=== PATIENT | female | born 1955 | race African-American/Black ===

== ENCOUNTER 2016-11-27 17:41 | Emergency (ER) | payer OTHER, MEDICARE ==
[~2016-11-27 17:41] MED LIST: HYDROCODONE/ACE1 TA1 PO
--- NOTE | 2016-11-27 18:24 | ED CARDIAC/CP/PALPITATIONS ---
History of Present Illness General Chief Complaint: General Adult Stated Complaint: "PULLED MUSCLE"? IN CHEST Source: patient, old records Exam Limitations: no limitations Vital Signs & Intake/Output Vital Signs & Intake/Output Vital Signs Date Time Temp Pulse Resp B/P Pulse O2 O2 Flow FiO2 Ox Delivery Rate 11/28 0002 97.8 82 18 174/90 96 Room Air 11/28 0001 97.4 11/27 2144 81 16 185/91 96 Room Air 11/27 2105 97.4 90 19 186/82 95 Room Air 11/27 1935 97 Room Air 11/27 1758 97.2 94 18 195/87 96 Allergies Coded Allergies: NO KNOWN ALLERGIES (07/27/16) Reconcile Medications Allopurinol 100 MG TABLET 1 TAB PO DAILY GOUT (Reported) Amlodipine Besylate 5 MG TABLET 1 TAB PO DAILY BP (Reported) Ascorbate Calcium (Vitamin C) (Unknown Strength) TABLET (Unknown Dose) PO DAILY SUPPLEMENT (Reported) Aspirin (Ecotrin*) 81 MG TABLET.DR 1 TAB PO DAILY HEART/BLOOD (Reported) Cholecalciferol (Vitamin D3) (Vitamin D) (Unknown Strength) TABLET (Unknown Dose) PO DAILY SUPPLEMENT (Reported) Clopidogrel Bisulfate (Clopidogrel) 75 MG TABLET 1 TAB PO DAILY BLOOD THINNER (Reported) Cyanocobalamin (Vitamin B-12) (Unknown Strength) TABLET (Unknown Dose) PO DAILY SUPPLEMENT (Reported) Dulaglutide (Trulicity) 1.5 MG/0.5 ML PEN.INJCTR 1.5 MG SC QTUES DM (Reported ) Esomeprazole (Nexium) 40 MG CAPSULE.DR 1 CAP PO DAILY GI (Reported) Ferrous Sulfate (IRON) (Unknown Strength) TABLET (Unknown Dose) PO DAILY SUPPLEMENT (Reported) Losartan Potassium 100 MG TABLET 1 TAB PO DAILY BP (Reported) Metformin HCl (Metformin HCl ER) 500 MG TAB.ER.24H 1 TAB PO BID DM (Reported) Metoprolol Succinate 50 MG TAB.ER.24H 1 TAB PO DAILY HEART/BP (Reported) Triage Note: 61 YEAR OLD FEMALE C/O LEFT SIDED RIB PAIN. PT STATES SHE THOUGHT IT WAS MUSCULAR BUT HAD A STENT PLACED IN SEPTEMBER SO SHE THOUGHT SHE SHOULD HAVE IT CHECKED. PT STATES SOMETIMES SHE JUST FEELS TIRED. SABINA CABRERA TO BEDSIDE FOR EVAL. Triage Nurses Notes Reviewed? yes Onset: Abrupt Duration: gone now, intermittent Timing: multiple episodes today Quality/Severity: moderate, sharp, stabbing Activities at Onset: activity Modifying Factors: Improves With: lying down. Worsens With: movement. 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 Patient currently is on clopidogrel who presents emergency room stating that for the past 2 days patient has noted intermittent left anterior chest wall pain that is made worse with deep inhalation palpation and upper extremity movements and body movements. Patient has not taken any medications for symptoms. Patient states at rest she has no pain. Denies any fever, chills, back pain arm pain jaw pain nausea vomiting palpitations diaphoresis leg swelling hemoptysis. Patient does taken prophylactic aspirin 81 mg a day (CRISTY KIMBALL) Past History Travel History Traveled to [place] past 21 day No Medical History Any Pertinent Medical History? 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 No (CRISTY KIMBALL) Review of Systems Review of Systems Constitutional: Reports: no symptoms. EENTM: Reports: no symptoms. Respiratory: Reports: see HPI. Denies: cough, short of breath. Cardiovascular: Reports: see HPI, chest pain. Denies: edema, palpitations. GI: Reports: no symptoms. Genitourinary: Reports: no symptoms. Musculoskeletal: Reports: no symptoms. Skin: Reports: no symptoms. Neurological/Psychological: Reports: no symptoms. Hematologic/Endocrine: Reports: no symptoms. Immunologic/Allergic: Reports: no symptoms. All Other Systems: Reviewed and Negative (CRISTY KIMBALL) Physical Exam Physical Exam General Appearance: no apparent distress, obese Respiratory: normal breath sounds, no respiratory distress, LEFT ANTERIOR CHEST WALL POINT TENDERNESS NOTED Cardiovascular: regular rate/rhythm Comments: HEENT: Normal EENT exam, Neck: Supple, no lymphadenopathy, normal range of motion without pain or tenderness Back: Nontender, no CVA tenderness. Abdomen: Soft, nontender nondistended, no appreciable organomegaly. Normal bowel sounds. No ascites Extremity: No edema, no calf tenderness to palpation, normal and equal pulses. Neuro: Alert oriented x3, motor sensory normal, Skin: No appreciable rash on exposed skin, skin is warm and dry. Psych: Mood and affect is normal, memory and judgment is normal. Core Measures ACS in differential dx? Yes Severe Sepsis Present: No Septic Shock Present: No (HORACIO MUHAMMAD,CRISTY) Progress Differential Diagnosis: AMI, aortic dissection, atrial fibrillation, cholecystitis, CHF/pulm edema, costochondritis, hyperkalemia, hypovolemia, hyperthyroid, hyperventilation, intracranial hemorrhage, musculoskeletal pain, myocarditis, pancreatitis, pericarditis, pneumonia, pneumothorax, PSVT, pulmonary embolism, PUD/GERD, PVCs/PACs, respiratory failure, rib fracture, sepsis, unstable angina, V-fib/V-Tach, WPW syndrome Plan of Care: Orders Procedure Date/time Status TROPONIN LEVEL 11/27 2300 Complete EKG 11/27 230 Active Telemetry/Drilling Engineer 11/27 1824 Active THYROID STIMULATING HORMONE 11/27 1824 Complete TROPONIN LEVEL 11/27 182 Complete FREE T4 11/27 182 Complete D-DIMER 11/27 182 Complete COMPREHENSIVE METABOLIC PANEL 11/27 182 Complete CBC WITHOUT DIFFERENTIAL 11/27 1824 Complete EKG 11/27 1743 Active Laboratory Tests 11/27/16 2316: Troponin I < 0.01 11/27/16 1900: Anion Gap 13, Estimated GFR 46 L, BUN/Creatinine Ratio 13.3, Glucose 122 H, Calcium 9.7, Total Bilirubin 0.3, AST 22, ALT 36, Alkaline Phosphatase 79, Troponin I < 0.01, Total Protein 6.7, Albumin 3.9, Globulin 2.8, Albumin/ Globulin Ratio 1.4, TSH 2.840, Free T4 0.92, D-Dimer < 200, CBC w Diff NO MAN DIFF REQ, RBC 6.25 H, MCV 65.2 L, MCH 20.6 L, RDW 17.8 H, MPV 9.7, Gran % 57.7, Lymphocytes % 27.2, Monocytes % 11.8 H, Eosinophils % 2.4, Basophils % 0.9, Absolute Granulocytes 3.9, Absolute Lymphocytes 1.8, Absolute Monocytes 0.8 H, Absolute Eosinophils 0.2, Absolute Basophils 0.1, PUBS MCHC 31.6 L Patient currently is in no apparent distress and has reproducible pain upon deep inhalations upper extremity movements and chest palpation. Patient had unremarkable EKG and troponin. It was discussed by me by radiologist concerns of a right hilar OPACITY which I discussed with patient the results and give a copy of the x-ray to follow up outpatient. I discussed patient with Dr. Arzola who advised patient to receive second set of cardiac enzyme in which patient was accepting this plan. helix coil winder noted patient to be normal sinus rhythm Patient had unremarkable second EKG and cardiac enzymes. Patient has been in the emergency room entire time having no exacerbation of symptoms and has reproducible pain upon chest wall movements at this time I spent patient have chest wall pain Patient was strongly advised to follow-up with chest x-ray findings that she was given a copy of the results (HORACIO MUHAMMAD,CRISTY) Diagnostic Imaging: Viewed by Me: Radiology Read. CXR Impression: SEE COMMENTS Initial ED EKG: sinus rhythm noted 91 bpm Multiple artifact noted Prior EKG: unchanged Repeat EKG: unchanged Comments: PATIENT: MANDY DAMON PRESENT AGE: 61 PATIENT ACCOUNT NO: [id number] : 55 LOCATION: [facility] ORDERING PHYSICIAN: CRISTY MUHAMMAD SERVICE DATE: 11/27/16 EXAM TYPE: RAD - XRY-CHEST XRAY, PA AND LATERAL EXAMINATION: XR CHEST CLINICAL INFORMATION: Left chest pain COMPARISON: Prior chest radiograph 10/30/2012 and 09/01/2013. TECHNIQUE: 2 views of the chest were obtained. FINDINGS: Cardiac and mediastinal silhouettes are normal in appearance. A new nodular density is seen lateral to the right hilum, not visualized previously. The lungs and pleural spaces are otherwise clear. No evidence of pulmonary edema. No focal osseous abnormalities. IMPRESSION: No cause for acute left-sided chest pain is seen. No evidence of left-sided pneumonia or pulmonary edema. Focal nodular tissue prominence is identified lateral to the right hilum, not visualized previously. Recommend enhanced CT thorax for further evaluation to exclude underlying pulmonary lesion. The findings were reviewed with Cristy Cabrera. (CRISTY KIMBALL) Departure Departure Disposition: HOME OR SELF CARE Condition: Stable Clinical Impression Primary Impression: Chest wall pain Referrals: LISA RODRIGES APRN (PCP/Family) Additional Instructions: As discussed continue home medications as directed. Begin [id number] ibuprofen if needed for pain and inflammation. Follow-up tomorrow with YOUR engine wiper. If symptoms worsen return to the emergency room Please provide your primary care doctor the copy of the x-ray to have a repeat image of your chest for follow-up Departure Forms: Customer Survey General Discharge Information (CRISTY KIMBALL) PA/NURSE COLLEGE Co-Sign Statement Statement: ED Attending supervision documentation- X] I saw and evaluated the patient. I have also reviewed all the pertinent lab results and diagnostic results. I agree with the findings and the plan of care as documented in the PA's/NURSE COLLEGE's documentation. [X] I have reviewed the ED Record and agree with the PA's/NURSE COLLEGE's documentation. [] Additions or exceptions (if any) to the PAs/NURSE COLLEGE's note and plan are summarized below: [] (GOOD KHAN,MARCELLO De Oliveira) Critical Care Note Critical Care Note Critical Care Time: non-applicable (CRISTY KIMBALL)
--- NOTE | 2016-11-27 19:00 | RADIOLOGY REPORT ---
EXAMINATION: XR CHEST CLINICAL INFORMATION: Left chest pain COMPARISON: Prior chest radiograph 10/30/2012 and 09/01/2013. TECHNIQUE: 2 views of the chest were obtained. FINDINGS: Cardiac and mediastinal silhouettes are normal in appearance. A new nodular density is seen lateral to the right hilum, not visualized previously. The lungs and pleural spaces are otherwise clear. No evidence of pulmonary edema. No focal osseous abnormalities. IMPRESSION: No cause for acute left-sided chest pain is seen. No evidence of left-sided pneumonia or pulmonary edema. Focal nodular tissue prominence is identified lateral to the right hilum, not visualized previously. Recommend enhanced CT thorax for further evaluation to exclude underlying pulmonary lesion. The findings were reviewed with Kostas Cabrera.
[2016-11-27 19:07] LABS: ABSOLUTE BASOPHIL COUNT 0.1 /CUMM (0.0-0.2); ABSOLUTE EOSINOPHIL COUNT 0.2 /CUMM (0.0-0.7); ABSOLUTE GRANULOCYTE CT 3.9 /CUMM (1.4-6.5); ABSOLUTE LYMPH COUNT 1.8 /CUMM (1.2-3.4); ABSOLUTE MONOCYTE COUNT 0.8 /CUMM (0.10-0.60); BASOPHIL % 0.9 % (0.0-2.0); EOSINOPHIL % 2.4 % (0-5); GRANULOCYTE % 57.7 % (42.2-75.2); HEMATOCRIT 40.7 % (37-47); MEAN CORPUSCULAR HGB 20.6 PG (27.0-31.0); MEAN CORPUSCULAR HGB CONC 31.6 G/DL (33.0-37.0); MEAN CORPUSCULAR VOLUME 65.2 FL (81.0-99.0); MEAN PLATELET VOLUME 9.7 FL (7.4-10.4); PLATELET COUNT 270 /CUMM (130-400); RBC DISTRIBUTION WIDTH 17.8 % (11.5-14.5); RED BLOOD CELL CT 6.25 /CUMM (4.20-5.40); WHITE BLOOD CELL COUNT 6.7 /CUMM (4.8-10.8)
[2016-11-27] MEDS ORDERED: METOPROLOL SUCC50 M2 PO (20:23)
[2016-11-27] MEDS ORDERED: NEXIUM40 M1 PO (20:23)
[2016-11-27] MEDS ORDERED: LOSARTAN POTAS100 M1 PO (20:24)
[2016-11-27] MEDS ORDERED: AMLODIPINE BESYL5 M1 PO (20:24)
[2016-11-27] MEDS ORDERED: TRULICITY1.5 MG/0.5 SC (20:25)
[2016-11-27] MEDS ORDERED: METFORMIN HCL500 M4 PO (20:25)
[2016-11-27] MEDS ORDERED: CLOPIDOGREL75 M1 PO (20:25)
[2016-11-27] MEDS ORDERED: ASPIRIN EC81 M1 PO (20:26)
[2016-11-27] MEDS ORDERED: ALLOPURINOL100 M1 PO (20:26)
[2016-11-27] MEDS ORDERED: VITAMIN B-121000 MC3 PO (20:26)
[2016-11-27] MEDS ORDERED: VITAMIN D2000 UNI1 PO (20:26)
[2016-11-27] MEDS ORDERED: IRON325 M3 PO (20:27)
[2016-11-27] MEDS ORDERED: VITAMIN C500 M6 PO (20:27)
[2016-11-28 00:02] VITALS: BP 174/90
== END 2016-11-28 00:02 ==
LOC: ERH 17:41
PROVIDERS: Physician Assistant
DX: R07.89 Other chest pain (principal); E11.9 Type 2 diabetes mellitus without complications; Z79.84 Long term (current) use of oral hypoglycemic drugs
CPT/HCPCS: 93005; 93010

== ENCOUNTER 2017-11-12 15:10 | Emergency (ER) | payer OTHER, MEDICARE ==
[~2017-11-12 15:10] MED LIST changes: +ALLOPURINOL100 M1 PO; +AMLODIPINE BESYL5 M1 PO; +ASPIRIN EC81 M1 PO; +CLOPIDOGREL75 M1 PO; +IBUPROFEN600 M1 PO; +IRON325 M3 PO; +LOSARTAN POTAS100 M1 PO; +METFORMIN HCL500 M4 PO; +METOPROLOL SUCC50 M2 PO; +NEXIUM40 M1 PO; +PROAIR HFA8.5 GM INH; +TRULICITY1.5 MG/0.5 SC; +ULTRAM50 M1 PO; +VITAMIN B-121000 MC3 PO; +VITAMIN C500 M6 PO; +VITAMIN D2000 UNI1 PO; +ZOFRAN ODT4 M1 SL
[2017-11-12 15:43] VITALS: BP 169/103
[2017-11-12 17:46] LABS: ABSOLUTE BASOPHIL COUNT 0 /CUMM (0.0-0.2); ABSOLUTE EOSINOPHIL COUNT 0.1 /CUMM (0.0-0.7); ABSOLUTE GRANULOCYTE CT 5.1 /CUMM (1.4-6.5); ABSOLUTE LYMPH COUNT 1.3 /CUMM (1.2-3.4); ABSOLUTE MONOCYTE COUNT 0.6 /CUMM (0.10-0.60); BASOPHIL % 0 % (0.0-2.0); EOSINOPHIL % 1.7 % (0-5); GRANULOCYTE % 72.1 % (42.2-75.2); MEAN CORPUSCULAR HGB 20.1 PG (27.0-31.0); MEAN CORPUSCULAR HGB CONC 31.4 G/DL (33.0-37.0); MEAN CORPUSCULAR VOLUME 64.2 FL (81.0-99.0); MEAN PLATELET VOLUME 8.4 FL (7.4-10.4); PLATELET COUNT 283 /CUMM (130-400); RBC DISTRIBUTION WIDTH 17.7 % (11.5-14.5); RED BLOOD CELL CT 6.23 /CUMM (4.20-5.40); WHITE BLOOD CELL COUNT 7.1 /CUMM (4.8-10.8)
== END 2017-11-12 18:53 | disposition admitted as inpatient to this hospital (09) ==
LOC: ERH 15:10
PROVIDERS: Physician Assistant Medical
DX: R06.02 Shortness of breath (principal)
CPT/HCPCS: 99281

== ENCOUNTER → 2017-11-29 | Day surgery (SDC) | payer OTHER, MEDICARE ==
[~2017-11-29] VITALS: Ht 157.5 cm; Wt 141.5 kg
[~2017-11-29] MED LIST changes: +SLOW RELEASE I142 MG PO; +VITAMIN B125000 MC1 PO
--- NOTE | 2017-11-29 13:20 | Operative Report ---
Operative/Inv Procedure Report Surgery Date: 11/29/17 Name of Procedure: Fluoro guided insertion of tunneled prtacath via R subclavian vein Pre-Operative Diagnosis: lung cancer Post-Operative Diagnosis: same Estimated Blood Loss: scant Surgeon/Gas Golf Cart Repairer: Burke KHAN,Keith Bowles Anesthesia: local monitored anesthesi Operative/Procedure Note Note: With the patient supine on the OR table, right arm tucked, head not turned, after induction of MAC sedation, the patient's right subclavian area, including the shoulder neck and contralateral chest, were prepped and draped in the usual sterile fashion. BMI 56, had to use tape. After injecting local anesthetic in the right infraclavicular area, skin, subcutaneous to the clavicle, and inferiorly where the pocket will be, the patient was repositioned to Trendelenburg. Putting your right index finger on the sternal notch and thumb pressing down lateral to the curve of the clavicle, I made a puncture through the skin with the 15 blade scalpel next to thumb. Then along that line towards the tip of your finger, advance a large-bore needle, bevel towards the feet, on a slip tip 10 mL syringe barrel flat against the deltoid, advancing to bone and then "walking" it down just under the clavicle keeping the needle flat as possible, while maintaining vacuum with the plunger, accessing the subclavian venous blood, then replacing the syringe with a wire, sliding in with minimum resistance, confirming the position with the C-arm fluoroscope, making sure the wire is traveling down along the cava towards the right side of the heart and not up or across, and no ectopy. Next I secured the wire to the drape, measured (approximately 23 cm), cut and attached the catheter to the port. Approximately 3-4 cm inferior to the stick site a 2-1/2 cm long skin incision was made with a 15 blade scalpel along Langers lines. It was deepened with cautery and a space was developed inferiorly under the subcutaneous layer. The Port-A-Cath was laid in there and secured in [address] with 2-0 Prolene through the holes in the port, the sutures were kept loose on snaps at this point. Next the catheter was tunneled up subcutaneously with a snap and brought out through the stick site next to the wire. Then the dilator only, was passed over the wire until you could feel it slide under the clavicle, then removed, then re-advanced this time with the peel-away sheath over it, while advancing simultaneously pull the dilator out and advance the sheath, eventually pulling out the dilator and wire completely. Then the catheter was put into the sheath as far as it'll go then while holding that knuckle down with DeBakey's, gently peel-away the sheath with your field administrative assistant. Now the correct position of the catheter was confirmed with the fluoroscope, using a Torres needle and heparinized saline solution, the catheter was first aspirated then flushed with approximately 3 mL's, with minimal resistance. The patient was repositioned to neutral, after tying down the 2 Prolenes, the larger incision was closed in layers, 3-0 Vicryl deep and 4-0 subcuticular Monocryl for the skin, and one subcuticular Monocryl for the stick site. Both areas were covered with Mastisol Steri-Strips Telfa and Tegaderm. Chest x-ray was ordered to be done in the recovery room. Lap and sponge counts were correct. Wound expectancy was clean, IV fluids crystalloid, complications none, patient tolerated the procedure well was awakened and returned to the recovery room in satisfactory condition.
--- NOTE | 2017-11-29 13:58 | RADIOLOGY REPORT ---
EXAMINATION: XR PORTABLE CHEST CLINICAL INFORMATION: In PACU. Status post Port-A-Cath. COMPARISON: Chest CTA 11/15/2017. TECHNIQUE: Portable frontal view of the chest was obtained. FINDINGS: There has been interval placement of a right chest wall port with catheter seen extending to the SVC but distal tip not visualized. There is subsegmental atelectasis bilaterally. There is no evidence of pneumothorax or dense consolidation. IMPRESSION: Interval placement of a right chest wall port which extends to the SVC but distal tip is not well visualized. No evidence of pneumothorax.
--- NOTE | 2017-11-30 09:41 | RADIOLOGY REPORT ---
EXAMINATION: CR ABDOMEN/INTRAOPERATIVE FLUOROSCOPY CLINICAL INDICATION: Port-A-Cath insertion. COMPARISON: Chest x-ray dated 10/08/2017. TECHNIQUE/FINDINGS: Fluoroscopic equipment was dedicated to the operating room for the performance of an intraoperative procedure. Several (2) spot films were acquired and are archived in PACS. Please refer to operative notes for procedural detail. FLUOROSCOPY TIME: 0.10 minutes. IMPRESSION: Administrative dictation for intraoperative fluoroscopy and image archiving in PACS. Please refer to operative notes for details.
== END ==
LOC: STS 02:43
DX: C34.91 Malignant neoplasm of unspecified part of right bronchus or lung (principal); G47.33 Obstructive sleep apnea (adult) (pediatric); Z87.891 Personal history of nicotine dependence; I25.10 Atherosclerotic heart disease of native coronary artery without angina pectoris; Z79.01 Long term (current) use of anticoagulants; E11.9 Type 2 diabetes mellitus without complications; Z79.84 Long term (current) use of oral hypoglycemic drugs; I10 Essential (primary) hypertension
CPT/HCPCS: 71045; 93005; 93010; C1751; J0690; J1644; J2250

== ENCOUNTER 2018-06-14 18:38 | Inpatient (IN) | payer OTHER, MEDICARE ==
[~2018-06-14] VITALS: Ht 157.5 cm; Wt 142.0 kg
[2018-06-14 20:16] LABS: ABSOLUTE BASOPHIL COUNT 0 /CUMM (0.0-0.2); ABSOLUTE EOSINOPHIL COUNT 0.5 /CUMM (0.0-0.7); ABSOLUTE GRANULOCYTE CT 3.7 /CUMM (1.4-6.5); ABSOLUTE LYMPH COUNT 0.9 /CUMM (1.2-3.4); BASOPHIL % 0.2 % (0.0-2.0); GRANULOCYTE % 60.2 % (42.2-75.2); HEMATOCRIT 36.7 % (37-47); MEAN CORPUSCULAR HGB 20.5 PG (27.0-31.0); MEAN CORPUSCULAR HGB CONC 31.3 G/DL (33.0-37.0); MEAN PLATELET VOLUME 9.9 FL (7.4-10.4); PLATELET COUNT 412 /CUMM (130-400); RBC DISTRIBUTION WIDTH 19.9 % (11.5-14.5)
--- NOTE | 2018-06-14 20:38 | ED GENERAL ADULT ---
History of Present Illness General Chief Complaint: Dyspnea (COPD, CHF, Other) Stated Complaint: DIFF BREATHING, CP, H/O LUNG CA Source: patient Exam Limitations: no limitations Vital Signs & Intake/Output Vital Signs & Intake/Output Vital Signs Date Time Temp Pulse Resp B/P B/P Pulse O2 O2 Flow FiO2 Mean Ox Delivery Rate 06/15 0100 98.5 91 20 166/85 98 Room Air 06/14 2232 170/85 06/14 2228 98.6 95 22 196/85 100 Room Air 06/14 2022 92 20 180/90 96 Room Air 06/14 1903 96.5 06/14 1858 100 18 226/99 96 Room Air ED Intake and Output 06/15 0000 06/14 1200 Intake Total 0 Output Total Balance 0 Intake, Oral 0 Patient 310 lb Weight Weight Reported by Patient Measurement Method Allergies Coded Allergies: NO KNOWN ALLERGIES (NONE 11/11/17) Reconcile Medications Albuterol Sulfate (Proair Hfa) 90 MCG HFA.AER.AD 2 PUF INH AD PRN RESP. ( Reported) Allopurinol 100 MG TABLET 1 TAB PO DAILY GOUT (Reported) Amlodipine Besylate 5 MG TABLET 1 TAB PO DAILY BP (Reported) Ascorbate Calcium (Vitamin C) 500 MG TABLET 2 TAB PO DAILY SUPPLEMENT ( Reported) Aspirin (Ecotrin*) 81 MG TABLET.DR 1 TAB PO DAILY HEART/BLOOD (Reported) Cholecalciferol (Vitamin D3) (Vitamin D) 2,000 UNIT TABLET 1 TAB PO DAILY SUPPLEMENT (Reported) Clopidogrel Bisulfate (Clopidogrel) 75 MG TABLET 1 TAB PO DAILY BLOOD THINNER (Reported) Cyanocobalamin (Vitamin B-12) (Vitamin B12) 5,000 MCG TAB.RAPDIS 1 TAB PO DAILY SUPPLEMENT (Reported) Dulaglutide (Trulicity) 1.5 MG/0.5 ML PEN.INJCTR 1.5 MG SC QTUES DM (Reported ) Esomeprazole (Nexium) 40 MG CAPSULE.DR 1 CAP PO DAILY GI (Reported) Ferrous Sulfate (Slow Release Iron) 142 MG (45 MG IRON) TABLET.ER 1 TAB PO DAILY SUPPLEMENT (Reported) Losartan Potassium 100 MG TABLET 1 TAB PO DAILY BP (Reported) Metformin HCl (Metformin HCl ER) 500 MG TAB.ER.24H 1 TAB PO BID DM (Reported) Metoprolol Succinate 50 MG TAB.ER.24H 3 TAB PO DAILY HEART/BP (Reported) Triage Note: PT TO ED FOR PAIN UNDER L BREAST ACCOMPANIED BY EXERTIONAL SOB. HX OF LUNG CA - CURRENTLY BEING TREATED, UNSURE OF LAST TREATMENT "THEY ARE CHANGING THE TREATMENT" PT AWAKE/ALERT. PAIN STARTED "A COUPLE DAYS AGO" WHILE PT WAS SITTING ON COUCH WATCHING TV. PT REPORTS SHE HAS BEEN MASSAGING UNDER BREAST WITH NO IMPROVEMENT. Triage Nurses Notes Reviewed? yes Onset: Gradual Duration: day(s): Timing: recent history Severity: moderate Severity Numbers: 6 No Modifying Factors: none HPI: 62-year-old female patient presents the ED complaining of left-sided chest pain in shortness of breath 3 days patient states the pain is located just under her left breast and has been radiating to her left side into the center of her chest intermittently. She recently has grown more frustrated with her shortness of breath which is worse with ambulation which is why she presents to the ED tonight. She has a history of lung and liver cancer which has been treated with chemo and radiation this past year. Other medical history includes diabetes and a cardiac stent. She denies history of asthma or COPD but states she borrows her friend's nebulizer treatment occasionally when she is short of breath. (Edvin Herrera) Past History Travel History Traveled to [place] past 21 day No Medical History Any Pertinent Medical History? 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 Yes (Edvin Herrera) Review of Systems Review of Systems Constitutional: Reports: weakness. Denies: chills, diaphoresis, fever. EENTM: Denies: blurred vision, double vision, visual changes, eye pain. Respiratory: Reports: short of breath. Denies: cough, sputum production, stridor, wheezing. Cardiovascular: Reports: chest pain. Denies: orthopena, palpitations, syncope. GI: Denies: abdominal pain, bloating, constipation, diarrhea. Genitourinary: Denies: discharge, dysuria, frequency, hematuria. Musculoskeletal: Denies: back pain, muscle pain, muscle stiffness, neck pain. All Other Systems: Reviewed and Negative (Edvin Herrera) Physical Exam Physical Exam General Appearance: well developed/nourished, no apparent distress, alert, awake , mild distress, obese Head: atraumatic, normal appearance Eyes: Bilateral: normal appearance, PERRL, EOMI. Ears, Nose, Throat: normal pharynx, normal ENT inspection, hearing grossly normal Neck: normal inspection, supple, full range of motion Respiratory: chest non-tender, no respiratory distress, quiet respiration, decreased breath sounds, plerual rub Cardiovascular: regular rate/rhythm, normal peripheral pulses Gastrointestinal: normal bowel sounds, soft, non-tender Back: normal inspection, normal range of motion Core Measures ACS in differential dx? Yes CVA/TIA Diagnosis: No Sepsis Present: No Sepsis Focused Exam Completed? Yes (Edvin Herrera) Progress Differential Diagnoses I considered the following diagnoses in my evaluation of the patient: [ACS, ARDS , COPD exacerbation, GERD, costochondritis,] 62-year-old female patient presents the ED complaining of left-sided chest pain in shortness of breath 3 days patient states the pain is located just under her left breast and has been radiating to her left side into the center of her chest intermittently. She recently has grown more frustrated with her shortness of breath which is worse with ambulation which is why she presents to the ED tonight. She has a history of lung and liver cancer which has been treated with chemo and radiation this past year. Other medical history includes diabetes and a cardiac stent. CXRAY r/o acute process. CTA to r/o PE considering PMHx and tachycardia. Plan of Care: Orders Procedure Date/time Status Consistent Carbohydrate 3 06/15 B Active CBC WITHOUT DIFFERENTIAL 06/15 06 Active BASIC ELECTROLYTES PLUS BUN&CR 06/15 06 Active STREP PNEUMO URINARY ANTIGEN 06/15 0023 Active LEGIONELLA URINARY ANTIGEN 06/15 0023 Active Lab Add-on Test 06/15 0020 Active Pathway - chart 06/15 0015 Active House Staff 06/15 0015 Active Patient Data 06/15 15 Active LOWER RESPIRATORY CULTURE 06/15 15 Active Code Status 06/15 001 Active VTE Mechanical Prophylaxis 06/15 UNK Active FingerStick- Glucose 06/15 UNK Active BLOOD CULTURE 06/14 2345 Active OXYGEN SETUP (GEN) 09/22 2304 Active Saline Lock 06/14 2304 Active Admit to inpatient 06/14 2304 Active Vital Signs 06/14 2304 Active Activity/Ambulation 06/14 2304 Active Code Status 06/14 2304 Complete LACTIC ACID 06/14 2006 Complete TROPONIN LEVEL 06/14 2005 Complete D-DIMER 06/14 2005 Complete COMPREHENSIVE METABOLIC PANEL 06/14 2005 Complete CBC WITHOUT DIFFERENTIAL 06/14 2005 Complete Intake & Output 06/14 1900 Active EKG 06/14 1839 Active Current Medications Sig/He Start time Last Medication Dose Stop Time Status Admin Azithromycin 500 MG 0000 06/16 0000 UNVr (Zithromax) Sodium Chloride 250 ML (Normal Saline 0.9%) Ceftriaxone Sodium 1,000 MG 0000 06/16 0000 UNVr (Rocephin) Atorvastatin Calcium 40 MG 1700 06/15 1700 UNVr (Lipitor) Amlodipine Besylate 5 MG DAILY 06/15 09 AC (Norvasc) Aspirin Buffered 81 MG DAILY 06/15 900 AC (Ecotrin) Cholecalciferol 2,000 IU DAILY 06/15 09 AC (Vitamin D) Clopidogrel Bisulfate 75 MG DAILY 06/15 09 AC (Plavix) Enoxaparin Sodium 40 MG DAILY 06/15 09 AC (Lovenox) Metoprolol Succinate 150 MG DAILY 06/15 09 AC (Toprol Xl) Insulin Aspart 0 TIDAC 06/15 08 AC (NovoLOG) Omeprazole 40 MG DAILY AC 06/15 07 AC (Prilosec) Albuterol Sulfate 2 PUF BID 06/15 0129 UNVr (Ventolin) Acetaminophen 650 MG Q6P PRN 06/15 0015 AC (Tylenol) Docusate Sodium 100 MG DAILY NEEDED PRN 06/15 001 AC (Colace) Morphine Sulfate 2 MG Q6P PRN 06/15 0015 AC (MORPHINE SULFATE) Oxycodone HCl 5 MG Q6 PRN 06/15 0015 AC (Roxicodone) Laboratory Tests 06/14/182005: Anion Gap 8, Estimated GFR 56 L, BUN/Creatinine Ratio 14.0, Glucose 116 H, Lactic Acid 2.0, Calcium 9.2, Total Bilirubin 0.4, AST 37 H, ALT 41, Alkaline Phosphatase 93, Troponin I 0.01, Total Protein 6.3, Albumin 3.5, Globulin 2.8, Albumin/Globulin Ratio 1.3, D-Dimer High Sensitivty 717 H, CBC w Diff NO MAN DIFF REQ, RBC 5.60 H, MCV 65.6 L, MCH 20.5 L, MCHC 31.3 L, RDW 19.9 H, MPV 9.9, Gran % 60.2, Lymphocytes % 15.1 L, Monocytes % 16.5 H, Eosinophils % 8.0 H, Basophils % 0.2, Absolute Granulocytes 3.7, Absolute Lymphocytes 0.9 L, Absolute Monocytes 1.0 H, Absolute Eosinophils 0.5, Absolute Basophils 0 Microbiology 06/15 23 URINE ROUT: Legionella Antigen - ORD 06/15 23 URINE ROUT: Streptococcus pneumoniae Antigen (M - ORD 06/15 15 LOWER RESP: Respiratory Culture - ORD 06/15 15 LOWER RESP: Gram Stain - ORD 06/15 15 BLOOD: Blood Culture - CAN Cancelled: Cancelled via OE: Duplicate Order 06/15 15 BLOOD: Blood Culture - CAN Cancelled: Cancelled via OE: Duplicate Order 06/15 BLOOD: Blood Culture - ORD 06/15 BLOOD: Blood Culture - ORD 62-year-old female patient presents the ED complaining of left-sided chest pain in shortness of breath 3 days patient states the pain is located just under her left breast and has been radiating to her left side into the center of her chest intermittently. She recently has grown more frustrated with her shortness of breath which is worse with ambulation which is why she presents to the ED tonight. She has a history of lung and liver cancer which has been treated with chemo and radiation this past year. Other medical history includes diabetes and a cardiac stent. CTA rules out pulmonary embolism. However the patient will be admitted for signs of pneumonia. Hospitalist contacted and is aware of patient's history of long cancer with metastases to liver. Blood cultures were ordered as well as IV Zithromax/ceftriaxone. Initial ED EKG: Sinus Tachycardia, Non specific T-Wave changes in the Lateral Leads (Edvin Herrera) Departure Departure Disposition: STILL A PATIENT Condition: Stable Clinical Impression Primary Impression: PNA (pneumonia) Referrals: Elly Avelar APRN (PCP/Family) Departure Forms: Customer Survey General Discharge Information Admission Note Spoke With: Jon Bhat MD Documentation of Exam: Documentation of any treatments & extenuating circumstances including Concerns Regarding Discharge (functional status, medication knowledge or non-compliance, living conditions, etc.) that warrant an admission rather than observation: [ CTA:IMPRESSION: NO Evidence of PE. No evidence of aortic dissection or aneurysm. Right upper lobe and right lower lobe superior segment pneumonic infiltrate with right posterior pleural thickening. There are reactionary lymph nodes or soft tissue density in the right parahilar region and subcarinal region. 2 liver lesions as described above likely metastatic. The right hepatic lobe lesion adjacent to the diaphragm has been seen on previous PET study 04/01/2018. VTE: Negative. Patient admitted on the terms of meeting SIRS criteria with evidence of pneumonia. She has an involved past medical history including diagnosed lung cancer which has metastasized to her liver with an acute infiltrate requiring admission as opposed to observation. These findings were discussed and agreed with by Dr. Bhat as well as Dr. Frances who were in agreement.] (Edvin Herrera) PA/[employer] Co-Sign Statement Statement: ED Attending supervision documentation- x I saw and evaluated the patient. I have also reviewed all the pertinent lab results and diagnostic results. I agree with the findings and the plan of care as documented in the PA's/[employer]'s documentation. JOHN, SOB, hx lung ca with pneumonia on CTA [] I have reviewed the ED Record and agree with the PA's/[employer]'s documentation. [] Additions or exceptions (if any) to the PAs/[employer]'s note and plan are summarized below: [] (Yvrose KHAN,Van) Critical Care Note Critical Care Note Critical Care Time: non-applicable (Edvin Herrera) ED Attending Observation Initial Observation Note: I have seen and personally examined MANDY DAMON on 06/14/18 at 2221. I agree with the current emergency department documentation. The disposition (admission or discharge) is uncertain at this time, she needs a period of observation for the following reason(s): The ED Nurse caring for this patient has been personally informed as to what the patient is being observed for. (Edvin Herrera)
[2018-06-14 20:48] LABS: MEAN CORPUSCULAR VOLUME 65.6 FL (81.0-99.0); WHITE BLOOD CELL COUNT 6.1 /CUMM (4.8-10.8)
--- NOTE | 2018-06-14 21:09 | RADIOLOGY REPORT ---
EXAMINATION: XR CHEST CLINICAL INFORMATION: Pneumonia, shortness of breath, lung cancer. COMPARISON: 11/29/2017 chest x-ray and 04/01/[address] scan. TECHNIQUE: 2 views of the chest were obtained. FINDINGS: The cardiac size and mediastinal silhouette are unremarkable. There are opacities in the right medial lung, obscuring the right mediastinal border, which could correlate with the airspace disease seen on the 04/01/[address] scan. The opacities could represent post treatment changes, however superimposed pneumonia is not excluded. Clinical correlation is suggested. The right lower lobe pulmonary mass is seen on the lateral view. There is tenting of the right hemidiaphragm which can be due to partial right lower lobe collapse. There is a right subclavian Port-A-Cath in place with its tip in the region of the right atrium. Elongated opacity in the left lower lung can represent plate-like atelectasis. The visualized bones demonstrate kyphotic and degenerative changes of the mid thoracic spine. IMPRESSION: Pulmonary opacities in the medial right lung with obscuration of the right mediastinal border could represent post treatment changes, although possibility of superimposed pneumonia is not excluded. Clinical correlation is advised.
--- NOTE | 2018-06-14 22:57 | CT SCAN REPORT ---
EXAMINATION: CT ANGIOGRAM OF THE CHEST WITH AND WITHOUT CONTRAST (CT PULMONARY ANGIOGRAM FOR PE) CLINICAL INFORMATION: Reason for Study:
Presumptive Dx: R/O PE
Signs Symptoms: CP and SOB
COMPARISON: None TECHNIQUE: Prior to contrast administration, noncontrast localization images were obtained. Subsequently, multidetector volumetric imaging was performed from the thoracic inlet to below the diaphragms following the administration of 80 mL Omnipaque 350 intravenous contrast. No contrast reaction reported. Sagittal, coronal, and MIP oblique sagittal reformatted images were obtained on the CT workstation, uploaded to PACS, and reviewed. Total exam dose-length product 838 mGy-cm. FINDINGS: QUALITY OF STUDY/CONTRAST BOLUS: Satisfactory PULMONARY ARTERIES: No central or segmental pulmonary emboli. THORACIC AORTA: No aneurysm or dissection. LUNG: Ends of well-expanded with the right lower lobe superior segment and right upper lobe consolidation with air bronchogram. Left lung is expanded and clear. PLEURA: There is minimal right posterior pleural thickening MEDIASTINUM: Heart size is normal. No pericardial effusion seen. The airways widely patent. There is soft tissue density in the right hilar region question reactive lymph nodes. Similarly there is soft tissue density subcarinal region suspicious for reactive lymph nodes as well. Small lymph nodes are seen left para-aortic region. No evidence of septal bowing or right heart strain. CHEST WALL/AXILLA: No axillary or internal mammary lymphadenopathy. OSSEOUS STRUCTURES: There is moderate bridging osteophytes and spondylosis mid and lower dorsal spine. UPPER ABDOMEN: There is diffuse attenuation of right hepatic lobe is small hypodense lesions along the right hepatic dome measuring 3 cm and a second lesion segment 7 right hepatic lobe on axial image 50, series 4. No reflux of contrast into the hepatic veins to suggest elevated right heart pressures. IMPRESSION: Evidence of PE. No evidence of aortic dissection or aneurysm. Right upper lobe and right lower lobe superior segment pneumonic infiltrate with right posterior pleural thickening. There are reactionary lymph nodes or soft tissue density in the right parahilar region and subcarinal region. 2 liver lesions as described above likely metastatic. The right hepatic lobe lesion adjacent to the diaphragm has been seen on previous PET study 04/01/2018. VTE: Negative.
--- NOTE | 2018-06-15 00:12 | History & Physical ---
Ron Ellis 06/15/18 0011: General Information and HPI MD Statement: I have seen and personally examined MANDY DAMON and documented this H&P. The patient is a 62 year old F who presented with a patient stated chief complaint of [shortness of breath]. Source of Information: patient, family Exam Limitations: poor historian History of Present Illness: 62-year-old morbidly obese female with history of lung adenocarcinoma with metastases to liver status post chemotherapy and radiation, hypertension, diabetes mellitus, coronary artery disease status post stenting, and asthma presents with worsening dyspnea on exertion and pain on the left side of her chest. The patient last received her chemotherapy 2 weeks ago, and for the last 2 days the patient has experienced increased shortness of breath on walking more than 30 feet. She has been using her inhaler at home, but this has not helped with her symptoms. At the same time, but occurring separately from exertion and/ or the dyspnea, the patient has experienced left-sided chest pain underneath her left breast. She reports that she has also had a recent cold with cough productive of whitish sputum that began just prior to the onset of the shortness of breath, after she took "a whole bottle of cough medicine" that did not help. One of her daughters has also been sick at home, but they are unsure as to who became sick first. She also reports chills and peripheral edema but denies fever. She also denies abdominal pain, constipation, diarrhea, dysuria, or urinary frequency/urgency. She is a former smoker, quitting tobacco as well as ETOH 20 years ago. Allergies/Medications Allergies: Coded Allergies: NO KNOWN ALLERGIES (NONE 11/11/17) Home Med list Albuterol Sulfate (Proair Hfa) 90 MCG HFA.AER.AD 2 PUF INH AD PRN RESP. ( Reported) Allopurinol 100 MG TABLET 1 TAB PO DAILY GOUT (Reported) Amlodipine Besylate 5 MG TABLET 1 TAB PO DAILY BP (Reported) Ascorbate Calcium (Vitamin C) 500 MG TABLET 2 TAB PO DAILY SUPPLEMENT ( Reported) Aspirin (Ecotrin*) 81 MG TABLET.DR 1 TAB PO DAILY HEART/BLOOD (Reported) Cholecalciferol (Vitamin D3) (Vitamin D) 2,000 UNIT TABLET 1 TAB PO DAILY SUPPLEMENT (Reported) Clopidogrel Bisulfate (Clopidogrel) 75 MG TABLET 1 TAB PO DAILY BLOOD THINNER (Reported) Cyanocobalamin (Vitamin B-12) (Vitamin B12) 5,000 MCG TAB.RAPDIS 1 TAB PO DAILY SUPPLEMENT (Reported) Dulaglutide (Trulicity) 1.5 MG/0.5 ML PEN.INJCTR 1.5 MG SC QTUES DM (Reported ) Esomeprazole (Nexium) 40 MG CAPSULE.DR 1 CAP PO DAILY GI (Reported) Ferrous Sulfate (Slow Release Iron) 142 MG (45 MG IRON) TABLET.ER 1 TAB PO DAILY SUPPLEMENT (Reported) Losartan Potassium 100 MG TABLET 1 TAB PO DAILY BP (Reported) Metformin HCl (Metformin HCl ER) 500 MG TAB.ER.24H 1 TAB PO BID DM (Reported) Metoprolol Succinate 50 MG TAB.ER.24H 3 TAB PO DAILY HEART/BP (Reported) Past History Travel History Traveled to [place] past 21 day No Medical History Neurological: NONE EENT: NONE Cardiovascular: angina, hypertension, hyperlipidemia, HEART DISEASE Respiratory: NONE Gastrointestinal: GERD Hepatic: NONE Renal: NONE Musculoskeletal: gout Psychiatric: NONE Endocrine: diabetes Cancer(s): NON SMALL CELL CANCER 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 Denies: diaphoresis, fever. Cardiovascular: Reports: chest pain, edema, peripheral edema. Denies: orthopena, palpitations. Respiratory: Reports: cough, short of breath, sputum production, wheezing. GI: Denies: abdominal pain, constipation, diarrhea, nausea, vomiting. Exam & Diagnostic Data Last 24 Hrs of Vital Signs/I&O Vital Signs Date Time Temp Pulse Resp B/P B/P Pulse O2 O2 Flow FiO2 Mean Ox Delivery Rate 06/15 0210 106 172/94 06/15 0149 97.9 20 97 Room Air 06/15 0147 172/94 06/15 0147 106 208/117 06/15 0100 98.5 91 20 166/85 98 Room Air 06/14 2232 170/85 06/14 2228 98.6 95 22 196/85 100 Room Air 06/14 2022 92 20 180/90 96 Room Air 06/14 1903 96.5 06/14 1858 100 18 226/99 96 Room Air Intake & Output 06/15 0800 06/15 0000 06/14 1600 Intake Total 0 Output Total Balance 0 Intake, Oral 0 Patient 140.614 kg Weight Weight Reported by Patient Measurement Method Physical Exam General Appearance Alert, Oriented X3, Cooperative, No Acute Distress HEENT Atraumatic, PERRLA, EOMI Cardiovascular Regular Rate, Normal S1, Normal S2 Lungs Clear to Auscultation, Normal Air Movement Abdomen Normal Bowel Sounds, Soft, No Tenderness Neurological Normal Speech, Strength at 5/5 X4 Ext, Normal Tone, Sensation Intact Extremities No Clubbing, No Cyanosis, 2+ pitting edema BLE's Last 24 Hrs of Labs/Klaus: Laboratory Tests 06/14/182005: Anion Gap 8, Estimated GFR 56 L, BUN/Creatinine Ratio 14.0, Glucose 116 H, Lactic Acid 2.0, Calcium 9.2, Total Bilirubin 0.4, AST 37 H, ALT 41, Alkaline Phosphatase 93, Troponin I 0.01, Total Protein 6.3, Albumin 3.5, Globulin 2.8, Albumin/Globulin Ratio 1.3, D-Dimer High Sensitivty 717 H, CBC w Diff NO MAN DIFF REQ, RBC 5.60 H, MCV 65.6 L, MCH 20.5 L, MCHC 31.3 L, RDW 19.9 H, MPV 9.9, Gran % 60.2, Lymphocytes % 15.1 L, Monocytes % 16.5 H, Eosinophils % 8.0 H, Basophils % 0.2, Absolute Granulocytes 3.7, Absolute Lymphocytes 0.9 L, Absolute Monocytes 1.0 H, Absolute Eosinophils 0.5, Absolute Basophils 0 Microbiology 06/15 152 URINE ROUT: Legionella Antigen - COMP 06/15 152 URINE ROUT: Streptococcus pneumoniae Antigen (M - COMP 06/15 15 LOWER RESP: Respiratory Culture - ORD 06/15 15 LOWER RESP: Gram Stain - ORD 06/15 15 BLOOD: Blood Culture - CAN Cancelled: Cancelled via OE: Duplicate Order 06/15 15 BLOOD: Blood Culture - CAN Cancelled: Cancelled via OE: Duplicate Order 06/15 BLOOD: Blood Culture - ORD 06/15 BLOOD: Blood Culture - ORD Assessment/Plan Assessment: 62 year old obese female with history of lung adenocarcinoma with metastatic liver lesions, coronary artery disease status post stenting presenting with 2 days of dyspnea on exertion. CTA found right upper lobe and right lower lobe superior segment pneumonic infiltrate with right posterior pleural thickening, suggestive of possible pneumonia. VTE negative, but D-dimer elevated at 717. Problems: 1. Right upper & lower lobe PNA 2. Microcytic anemia 3. Hypertension 4. Diabetes mellitus 5. History of lung adenocarcinoma, with metastases to the liver and lymph nodes 6. Morbid obesity Plan: Full code As Ranked By This Provider Problem List: 1. Chest wall pain 2. PNA (pneumonia) Core Measures/Misc (06/09) Acute Coronary Syndrome ACS Diagnosis: No Congestive Heart Failure Congestive Heart Failure Diagnosis No Cerebrovascular Accident CVA/TIA Diagnosis: No VTE (View Protocol) VTE Risk Factors Cancer/chemo/othr therapy No Mechanical VTE Prophylaxis d/t N/A MechProphylax Ordered No VTE Pharm Prophylaxis d/t NA PharmProphylax ordered Sepsis (View protocol) Sepsis Present: No If YES complete Sepsis Event Note If YES complete Sepsis Event Note Jon Bhat 06/15/18 0013: Core Measures/Misc (06/09) Sepsis (View protocol) If YES complete Sepsis Event Note If YES complete Sepsis Event Note Attending MD Review Statement Attending Statement Attending MD Statement: examined this patient, discuss w/resident/PA/LAMINATION MACHINE OPERATOR, agreed w/resident/PA/LAMINATION MACHINE OPERATOR, discussed with family, reviewed images, amended to note Attending Assessment/Plan: Addendum by . Patient was seen and examined at bedside today ( 06/14/18 ) at 11:45 pm. Reviewed the history physical done by the resident. Reviewed the past medical family, family, social history. ROS: 10 point system reviewed and negative except as described above. Additional details: Patient is 62 years old female who is morbidly obese has adenocarcinoma of the lung with metastasis to the lymph nodes, liver diagnosed earlier this year who is undergoing chemotherapy, status post radiotherapy, history of diabetes type 2, coronary disease status post stenting, asthma, hypertension, gout he is here for evaluation of shortness of breath going on for 2 days. Patient says that she noticed shortness of breath associated with cough and sputum for 2 days. She thought symptoms would get better on its own but did not get any improvement so she visited the emergency room. In the ER she had a normal vitals. She underwent a CT chest to rule out any PE which was negative. But found to have right upper lobe pneumonia. Exam: Obese, alert, oriented 3. Lungs-clear no crackles or wheezing heard. Normal cardiac exam. Chest x-ray, CT chest with contrast, labs, biopsy reports, prior imaging studies are reviewed. Assessment and plan: #Right upper lobe pneumonia involving the anterior segment. Patient is stable breathing de. Get sputum cultures, blood cultures, start on azithromycin plus ceftriaxone. The patient feels better can discharge her home on oral antibiotics. #Adenocarcinoma of the lung with metastasis to the lymph nodes and liver. Status post chemotherapy and radiotherapy. CT chest ruled out PE, which is still showing 2 lesions in the liver, persistent right lung mass. Though her last PET scan shows resolved right hilar and right mediastinal lymph nodes. Patient follows with the hematology group here in [place] and she received last chemotherapy 2 weeks ago. #Morbid obesity-weight loss was advised. #Hypertension-continue the home medications. #Coronary disease status post coronary stent this year. Continue with aspirin and Plavix, beta-blockers, statin. #Diabetes type 2 patient is on Trulicity and metformin at home. Continue with a sliding scale and metformin for now and resume her home medications on discharge. #Asthma stable-continue with the albuterol inhaler. #History of gout-continue with allopurinol. #Vitamin D deficiency continue with the supplements. Reviewed with the resident. Agree with the rest of the plan as per resident's note. Dr.Ravinder Kay MD. Hospitalist. Pager: [phone], cell: [phone]. Josseline KHAN,[facility] 06/15/18 0018: Core Measures/Misc (06/09) Sepsis (View protocol) If YES complete Sepsis Event Note If YES complete Sepsis Event Note Resident Review Statement Resident Statement: examined this patient, discussed with internal security manager, reviewed EMR data (avail) Other Findings: 62 yo F with PMH of hypertension, hyperlipidemia, diabetes, invasive lung adenocarcionma with metastases to liver s/p radiation and chemotherapy, CAD s/p stent, asthma presented to the ED with complains of worsening shortness of breath and cough. The patient states that for the past few days, she has had a persistent cough with white productive sputum along with shortness of breath worse with exertion. She initially used a cough medication but it didn't help her much. Due to persistent symptoms she visited the ER today. She also complains of soreness below her left breast. She denies any sick contacts at home. Denies fevers but endorses chills. Denies any abdominal pain, nausea, dysuria, constipation or diarrhea. She received her first dose of chemotherapy [address] ago[address] with [address] Ferrer. ROS: as per HPI Physical Exam: General Appearance: well developed/obese, no apparent distress, Head: atraumatic, normal appearance Ears, Nose, Throat: normal hearing and speech. No sinus tenderness Respiratory: normal breath sounds, chest non-tender, no respiratory distress Cardiovascular: regular rate/rhythm, normal S1 and S2, no M/R/G Gastrointestinal: soft, distended, non-tender Extremities: pitting edema of feet Neurologic/Psych: awake, alert, oriented x 3, normal mood/affect Skin: intact, normal color, warm/dry A chest CTA showed right upper lobe and right lower lobe superior segment pneumonic infiltrate with right posterior pleural thickening. Reactionary lymph nodes or soft tissue density in the right parahilar region and subcarinal region. Two metastatic liver lesions Assessment: 1. Right upper and lower lobe Pneumonia 2. Microcytic Anemia 3. History of diabetes 4. History of Hypertension 5. History of Lung adenocarcinoma with metastases to liver and hilar lymph nodes 6. Morbid Obesity Plan: * Admit patient to general medicine floor. * Start IV Ceftriaxone 1g and IV Azithromycin 500mg daily. * Obtain blood and sputum cultures. * Obtain urine legionella and strep pneumo antigen. * Continue aspirin, plavix, statin and metoprolol. * Hold oral hypoglycemics * Insulin SS with Accuchecks. * Diet: diabetic * DVT Prophylaxis: SC Lovenox * Code: Full Code * Please obtain the patient's medication list from the pharmacy or from Dr Arzola's office on Saturday.
[2018-06-15 01:47] VITALS: BP 172/94; BP 208/117
--- NOTE | 2018-06-15 04:17 | Event Note ---
Event Note Event Note: S-Called to the patient's room by nursing because the patient was complaining of R arm pain after receiving an IV dose of Azithromycin. The IV Azithromycin was paused. B-The patient has a history of lung cancer and was admitted by me for dyspnea on exertion, presumed pneumonia. She has one venous access and blood cultures were unable to be drawn in the ED because the patient was deemed a "hard stick". She is being given IV Azithromycin and Ceftriaxone to cover suspected pneumonia. A-The patient reports that she began noticing a "stinging pain" in her right arm , over an area about the size of a quarter ~10cm proximal to the IV site in her Right antecubital fossa, not extending along proximally, that improved after the IV Azithromycin was stopped. The patient denied any burning sensation or itching. She likewise denied light-headedness. The patient was unsure whether she has ever had Azithromycin before, but denied any known drug allergies. On exam the patient's right arm was non-erythematous and did not appear swollen when compared to the left arm. The IV site itself was clean, without bleeding, bruising, swelling or evidence of infiltration. The right arm was completely non -tender to palpation, including where the patient indicated her pain was, the arm was slightly warm to the touch, but not significantly warmer than the left arm. Strength was intact, 5/5 in the bilateral upper extremities. Sensation and radial pulses were also intact. R-It is possible that the patient was having a reaction to Azithromycin, and to be cautious I held the IV Azithromycin for now, although most of the dose had already been given (approximately 3/4 of the bag). It more likely that this patient's IV could be infiltrated, and I recommend that tomorrow the Ceftriaxone be given first to see if she has a similar stinging sensation (since she received Ceftriaxone without incident in the ED). If there is no stinging, it would be adviseable to discontinue the Azithromycin and switch to a different antibiotic. Finally, there is the unlikely possibility of a DVT of the right upper extremity, given the patient's history of cancer, but this is made less likely by the lack of tenderness or swelling in the patient's right arm. Irregardless, in light of an elevated D-dimer of 717, venous duplex ultrasound of the RUE should be considered.
[2018-06-15 04:29] VITALS: BP 145/95
[2018-06-15 06:48] VITALS: BP 145/95
--- NOTE | 2018-06-15 10:15 | Event Note ---
Event Note Event Note: Assessment: 62 year old obese female with history of lung adenocarcinoma with metastatic liver lesions, coronary artery disease status post stenting presenting with 2 days of dyspnea on exertion. CTA found right upper lobe and right lower lobe superior segment pneumonic infiltrate with right posterior pleural thickening, suggestive of possible pneumonia. VTE negative, but D-dimer elevated at 717. Problems: 1. Right upper & lower lobe PNA 2. Microcytic anemia 3. Hypertension 4. Diabetes mellitus 5. History of lung adenocarcinoma, with metastases to the liver and lymph nodes 6. Morbid obesity Subjective- Patient was seen and examined this morning. She is doing well, denies any fever/ chest pain/ fatigue/ cough/ racing of heart/ abdominal pain/ nausea and vomitting. Her medication list was confirm,ed with pharmacy and [facility]. Patient is apparently prescribed lasix, which she last refilled on 04/29 and hasnt been compliant. Her BP today has been high and she has CP. -f/u EKG- no acute changes from previous EKG -Troponin- f/u -WIll get an echo -RUE doppler- IMPRESSION: No thrombus identified within the veins of the right upper extremity. If clinical symptoms persist, consider repeat evaluation in 5-7 days. Cardiology consult appreciated -Continue cardiac regimen of aspirin, Plavix, metoprolol and statin therapy. Continue amlodipine for blood pressure control. -She may continue on empiric antibiotic therapy for now pending evaluation by lead solutions architect for possible cardiac etiology of her symptoms. -Continue sliding-scale insulin coverage.
--- NOTE | 2018-06-15 10:52 | PN- Att Addend ---
Attending Addendum Attending Brief Note Patient seen and examined. System comfortably eating breakfast. Not in any acute distress. Denies chest pain now. Denies shortness of breath at rest.. Denies palpitations. She admits to chronic shortness of breath. It is noted that patient presented with complaints of left-sided chest pain. She was found afebrile with no leukocytosis. Imaging shows right-sided pulmonary infiltrate. Post radiation therapy changes should be considered as differential for this infiltrate. Vital Signs Date Time Temp Pulse Resp B/P B/P Pulse O2 O2 Flow FiO2 Mean Ox Delivery Rate 06/15 0940 132/80 06/15 0800 96 Room Air 06/15 0648 98.2 98 20 145/95 96 Room Air 06/15 0429 98.2 98 20 145/95 96 Room Air 06/15 0240 96 Room Air 06/15 0210 106 172/94 06/15 0149 97.9 20 97 Room Air 06/15 0147 172/94 06/15 0147 106 208/117 06/15 0100 98.5 91 20 166/85 98 Room Air 06/14 2232 170/85 06/14 2228 98.6 95 22 196/85 100 Room Air 06/14 2022 92 20 180/90 96 Room Air 06/14 1903 96.5 06/14 1858 100 18 226/99 96 Room Air General appearance: Not in acute distress Heart: S1-S2 regular with no audible murmur Lungs: Adequate entry bilaterally with no added sounds Abdomen: Obese, soft, nontender with normal bowel sounds Extremities: No pedal edema. No evidence of IV infiltration in the right upper extremity. Skin: Intact with no rashes. Assessment. Patient is a 62-year-old female with medical history significant for coronary artery disease status post need for stent placement in the past. It is noted that earlier this year she had a nuclear stress test which she could not complete as she became symptomatic and had a drop in her blood pressure. The nuclear portion of the stress test showed evidence of a perfusion abnormality involving the inferior wall this abnormality was noted to be more severe than noted in a previous stress test. However the radiologist did suggest that findings could be due to attenuation by the adjacent diaphragm. She now presents with left-sided chest pain and worsening shortness of breath. Only evidence suggestive of pneumonia is an infiltrate on the right side which is at the site of previous biopsy and radiation therapy for lung cancer. Problems: 1. Chest pain 2. Worsening chronic shortness of breath 3. History of coronary artery disease status post stent placement in the past. 4. Right-sided lung cancer status post biopsy, radiation therapy currently on chemotherapy. With metastasis to the liver. 5. [id number] diabetes mellitus 6. Hypertension Plan: -In view of her history of coronary artery disease I believe a chest pain needs to be evaluated in more detail. Second troponin should be drawn and the cardiology service contacted regarding need for further ischemic workup. Obtain further information from her university counselor during the week. Obtain echocardiogram to evaluate for wall motion abnormalities. Check BNP level although she shows normal evidence of volume overload on physical examination or radiologic exam evaluation. -Continue cardiac regimen of aspirin, Plavix, metoprolol and statin therapy. Continue amlodipine for blood pressure control. -She may continue on empiric antibiotic therapy for now pending evaluation by university counselor for possible cardiac etiology of her symptoms. -Continue sliding-scale insulin coverage.
[2018-06-15 14:19] VITALS: BP 176/94
--- NOTE | 2018-06-15 14:28 | ULTRASOUND REPORT ---
EXAMINATION: US TRIPLEX LOWER EXTREMITY, EXAMINATION: DUPLEX VENOUS ULTRASOUND OF THE right UPPER EXTREMITY. CLINICAL HISTORY: Stinging sensation of right upper extremity COMPARISON: None. TECHNIQUE: Long-scale, color and Doppler ultrasound of the deep veins of the right upper extremity were performed. FINDINGS: The right internal jugular, subclavian and axillary veins demonstrate normal color Doppler flow suggesting patency. The right brachial and basilic veins are easily compressible and demonstrate normal color Doppler flow suggesting patency. The right cephalic vein is easily compressible suggesting patency. IMPRESSION: No thrombus identified within the veins of the right upper extremity. If clinical symptoms persist, consider repeat evaluation in 5-7 days.
[2018-06-15 15:58] LABS: HEMATOCRIT 37.5 % (37-47); MEAN CORPUSCULAR HGB 20.5 PG (27.0-31.0); MEAN CORPUSCULAR HGB CONC 31.6 G/DL (33.0-37.0); MEAN CORPUSCULAR VOLUME 64.8 FL (81.0-99.0); MEAN PLATELET VOLUME 9.8 FL (7.4-10.4); PLATELET COUNT 406 /CUMM (130-400); RBC DISTRIBUTION WIDTH 19.6 % (11.5-14.5); RED BLOOD CELL CT 5.78 /CUMM (4.20-5.40); WHITE BLOOD CELL COUNT 8.5 /CUMM (4.8-10.8)
--- NOTE | 2018-06-15 16:42 | Cons- Cardiology ---
General Information and HPI Consulting Request Date of Consult: 06/15/18 Requested By: Jon Bhat MD Reason for Consult: Chest pain History of Present Illness: The patient is a 62-year-old female with history of lung adenocarcinoma with metastases to the liver status post chemotherapy and radiation, hypertension, diabetes mellitus, and CAD status post stenting who presented with complaint of shortness of breath and chest discomfort. The patient most recently had chemotherapy 2 weeks ago. For the past 2 days the patient has noted shortness of breath which is increased with activity such as walking 30 feet. She has been using her inhaler at home without improvement. She also notes dull left- sided chest discomfort which is a 7 out of 10 in severity. The chest discomfort lasts for a few minutes per episode and occurs multiple times per day. She had a recent cough productive of whitish sputum. Allergies/Medications Allergies: Coded Allergies: NO KNOWN ALLERGIES (NONE 11/11/17) Home Med List: Albuterol Sulfate (Proair Hfa) 90 MCG HFA.AER.AD 2 PUF INH AD PRN RESP. ( Reported) Allopurinol 100 MG TABLET 1 TAB PO DAILY GOUT (Reported) Amlodipine Besylate 5 MG TABLET 1 TAB PO DAILY BP (Reported) Ascorbate Calcium (Vitamin C) 500 MG TABLET 2 TAB PO DAILY SUPPLEMENT ( Reported) Aspirin (Ecotrin*) 81 MG TABLET.DR 1 TAB PO DAILY HEART/BLOOD (Reported) Cholecalciferol (Vitamin D3) (Vitamin D) 2,000 UNIT TABLET 1 TAB PO DAILY SUPPLEMENT (Reported) Clopidogrel Bisulfate (Clopidogrel) 75 MG TABLET 1 TAB PO DAILY BLOOD THINNER (Reported) Cyanocobalamin (Vitamin B-12) (Vitamin B12) 5,000 MCG TAB.RAPDIS 1 TAB PO DAILY SUPPLEMENT (Reported) Dulaglutide (Trulicity) 1.5 MG/0.5 ML PEN.INJCTR 1.5 MG SC QTUES DM (Reported ) Esomeprazole (Nexium) 40 MG CAPSULE.DR 1 CAP PO DAILY GI (Reported) Ferrous Sulfate (Slow Release Iron) 142 MG (45 MG IRON) TABLET.ER 1 TAB PO DAILY SUPPLEMENT (Reported) Losartan Potassium 100 MG TABLET 1 TAB PO DAILY BP (Reported) Metformin HCl (Metformin HCl ER) 500 MG TAB.ER.24H 1 TAB PO BID DM (Reported) Metoprolol Succinate 50 MG TAB.ER.24H 3 TAB PO DAILY HEART/BP (Reported) Current Medications: Current Medications Sig/He Start time Last Medication Dose Route Stop Time Status Admin Acetaminophen 650 MG Q6P PRN 06/15 0015 AC PO Albuterol Sulfate 3 ML Q4P PRN 06/15 1330 AC INH Albuterol Sulfate 2 PUF BIDPRN PRN 06/15 1322 AC INH Albuterol Sulfate 2 PUF BID 06/15 0129 DC INH Amlodipine Besylate 5 MG DAILY 06/15 09 AC 06/15 PO 0940 Amlodipine Besylate 2.5 MG ONCE ONE 06/15 0200 DC 06/15 PO 06/15 0201 0210 Aspirin Buffered 81 MG DAILY 06/15 09 AC 06/15 PO 0940 Atorvastatin Calcium 40 MG 1700 06/15 1700 AC 06/15 PO 1700 Azithromycin 500 MG 0000 06/16 0000 AC Sodium Chloride 250 ML IV Azithromycin 500 MG ONCE ONE 06/14 2345 DC 06/15 Sodium Chloride 250 ML IV 06/15 0044 0112 Ceftriaxone Sodium 1,000 MG 0000 06/16 0000 AC IV Ceftriaxone Sodium 0 .STK-MED ONE 06/15 0107 DC .ROUTE Ceftriaxone Sodium 1,000 MG ONCE ONE 06/15 0015 DC IV 06/15 0016 Ceftriaxone Sodium 1,000 MG ONCE ONE 06/14 2345 DC 06/15 IV 06/14 2346 0111 Cholecalciferol 2,000 IU DAILY 06/15 09 AC 06/15 PO 0941 Clopidogrel Bisulfate 75 MG DAILY 06/15 09 AC 06/15 PO 0941 Docusate Sodium 100 MG DAILY NEEDED PRN 06/15 0015 AC PO Enoxaparin Sodium 40 MG DAILY 06/15 09 AC 06/15 SC 0941 Furosemide 20 MG ONCE ONE 06/15 1730 DC 06/15 PO 06/15 1731 1825 Insulin Aspart 0 TIDAC 06/15 08 AC 06/15 SC 1700 Metoprolol Succinate 150 MG DAILY 06/15 09 AC 06/15 PO 0941 Morphine Sulfate 2 MG Q6P PRN 06/15 0015 AC IV Omeprazole 40 MG DAILY AC 06/15 0700 AC 06/15 PO 0624 Oxycodone HCl 5 MG Q6 PRN 06/15 0015 AC PO Review of Systems Review of Systems: No rash. No tremor. No fever. No chills. All other systems were reviewed, and were noted to be negative. 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 reviewed/non-contributory Psychosocial History Where Do You Live? Home Services at Home: None Smoking Status: Former Smoker Exam & Diagnostic Data Vital Signs and I&O Vital Signs Date Time Temp Pulse Resp B/P B/P Pulse O2 O2 Flow FiO2 Mean Ox Delivery Rate 06/15 1600 Room Air 06/15 1419 97.5 92 18 176/94 94 Room Air 06/15 1306 Room Air 06/15 0940 132/80 06/15 0800 96 Room Air 06/15 0648 98.2 98 20 145/95 96 Room Air 06/15 0429 98.2 98 20 145/95 96 Room Air 06/15 0240 96 Room Air 06/15 0210 106 172/94 06/15 0149 97.9 20 97 Room Air 06/15 0147 172/94 06/15 0147 106 208/117 06/15 0100 98.5 91 20 166/85 98 Room Air 06/14 2232 170/85 06/14 2228 98.6 95 22 196/85 100 Room Air Intake & Output 06/15 1600 06/15 0800 06/15 0000 06/14 1600 06/14 0800 06/14 0000 Intake Total 910 490 0 Output Total 300 Balance 910 190 0 Intake, IV 10 250 Intake, Oral 900 240 0 Number 0 Bowel Movements Output, Urine 300 Patient 314 lb 310 lb Weight Weight Bed scale Reported by Patient Measurement Method Physical Exam: Gen: The patient is in no acute distress HEENT: Normal nose, ears, and oropharynx. Pupils equal bilaterally. Conjunctiva normal. Neck: Supple with no JVD, no masses, and no thyromegaly Lungs: Clear to auscultation with normal respiratory effort Heart: RRR, S1, S2, no murmurs. No peripheral edema, 2+ pulses in the lower extremities bilaterally Abdomen: Soft, nontender, no masses. No hepatomegaly. No splenomegaly Extremities: No clubbing or cyanosis. Normal muscle strength in the upper and lower extremities Skin: Normal skin turgor with no skin ulcers or lesions noted. Neuro: Cranial nerves intact. Sensation intact Psych: Alert and oriented x 3 with appropriate affect Labs/Klaus Results: Laboratory Tests 06/15 06/15 1535 1535 Chemistry Sodium (137 - 145 mmol/L) 136 L Potassium (3.5 - 5.1 mmol/L) 4.4 Chloride (98 - 107 mmol/L) 100 Carbon Dioxide (22 - 30 mmol/L) 24 Anion Gap (5 - 16) 12 BUN (7 - 17 mg/dL) 13 Creatinine (0.5 - 1.0 mg/dL) 1.1 H Estimated GFR (>60 ml/min) 50 L BUN/Creatinine Ratio (7 - 25 %) 11.8 Troponin I (< 0.11 ng/ml) < 0.01 [id number] Pept (<125 pg/mL) 212 H Hematology CBC w Diff MAN DIFF ORDERED WBC (4.8 - 10.8 /CUMM) 8.5 RBC (4.20 - 5.40 /CUMM) 5.78 H Hgb (12.0 - 16.0 G/DL) 11.8 L Hct (37 - 47 %) 37.5 MCV (81.0 - 99.0 FL) 64.8 L MCH (27.0 - 31.0 PG) 20.5 L MCHC (33.0 - 37.0 G/DL) 31.6 L RDW (11.5 - 14.5 %) 19.6 H Plt Count (130 - 400 /CUMM) 406 H MPV (7.4 - 10.4 FL) 9.8 Segmented Neutrophils (42.2 - 75.2 %) 64 Lymphocytes (20.5 - 51.1 %) 13 L Monocytes (1.7 - 9.3 %) 16 H Eosinophils (0 - 5.0 %) 7 H Platelet Estimate (ADEQUATE) VERIFIED BY SMEAR Polychromasia 1+ Hypochromic-Microcytic 2+ Poikilocytosis 1+ Anisocytosis 1+ Microcytic Cells 2+ Target Cells 1+ 06/14 2006 Chemistry Sodium (137 - 145 mmol/L) 139 Potassium (3.5 - 5.1 mmol/L) 4.9 Chloride (98 - 107 mmol/L) 106 Carbon Dioxide (22 - 30 mmol/L) 25 Anion Gap (5 - 16) 8 BUN (7 - 17 mg/dL) 14 Creatinine (0.5 - 1.0 mg/dL) 1.0 Estimated GFR (>60 ml/min) 56 L BUN/Creatinine Ratio (7 - 25 %) 14.0 Glucose (65 - 99 mg/dL) 116 H Lactic Acid (0.7 - 2.1 mmol/L) 2.0 Calcium (8.4 - 10.2 mg/dL) 9.2 Total Bilirubin (0.2 - 1.3 mg/dL) 0.4 AST (14 - 36 U/L) 37 H ALT (9 - 52 U/L) 41 Alkaline Phosphatase (<127 U/L) 93 Troponin I (< 0.11 ng/ml) 0.01 Total Protein (6.3 - 8.2 g/dL) 6.3 Albumin (3.5 - 5.0 g/dL) 3.5 Globulin (1.9 - 4.2 gm/dL) 2.8 Albumin/Globulin Ratio (1.1 - 2.2 %) 1.3 Coagulation D-Dimer High Sensitivty (0 - 243 ng/ml) 717 H Hematology CBC w Diff NO MAN DIFF REQ WBC (4.8 - 10.8 /CUMM) 6.1 RBC (4.20 - 5.40 /CUMM) 5.60 H Hgb (12.0 - 16.0 G/DL) 11.5 L Hct (37 - 47 %) 36.7 L MCV (81.0 - 99.0 FL) 65.6 L MCH (27.0 - 31.0 PG) 20.5 L MCHC (33.0 - 37.0 G/DL) 31.3 L RDW (11.5 - 14.5 %) 19.9 H Plt Count (130 - 400 /CUMM) 412 H MPV (7.4 - 10.4 FL) 9.9 Gran % (42.2 - 75.2 %) 60.2 Lymphocytes % (20.5 - 51.1 %) 15.1 L Monocytes % (1.7 - 9.3 %) 16.5 H Eosinophils % (0 - 5 %) 8.0 H Basophils % (0.0 - 2.0 %) 0.2 Absolute Granulocytes (1.4 - 6.5 /CUMM) 3.7 Absolute Lymphocytes (1.2 - 3.4 /CUMM) 0.9 L Absolute Monocytes (0.10 - 0.60 /CUMM) 1.0 H Absolute Eosinophils (0.0 - 0.7 /CUMM) 0.5 Absolute Basophils (0.0 - 0.2 /CUMM) 0 Diagnostic Data EKG Results EKG tracing is independently reviewed and reveals NSR at 92, left atrial enlargement, nonspecific T abnormality CXR Results Pulmonary opacities in the medial right lung with obscuration of the right mediastinal border could represent post treatment changes, although possibility of superimposed pneumonia is not excluded. Clinical correlation is advised. Other Results CTA Chest: Evidence of PE. No evidence of aortic dissection or aneurysm. Right upper lobe and right lower lobe superior segment pneumonic infiltrate with right posterior pleural thickening. There are reactionary lymph nodes or soft tissue density in the right parahilar region and subcarinal region. 2 liver lesions as described above likely metastatic. The right hepatic lobe lesion adjacent to the diaphragm has been seen on previous PET study Lower extremity Doppler study 06/15/18: No thrombus identified within the veins of the right upper extremity. If clinical symptoms persist, consider repeat evaluation in 5-7 days. Assessment/Plan Assessment/Plan The patient is a 62-year-old female with history of CAD, lung cancer, hypertension, diabetes mellitus presenting with chest discomfort and shortness of breath. She has been treated for possible pneumonia. Given the history of known CAD, at the recent chest discomfort is concerning for possible myocardial ischemia. Recommendations: * Check serial troponin * Continue aspirin and Plavix. * Continue metoprolol and statin. * Continue other cardiac medications * Echocardiogram * Agree with empiric antibiotic therapy for possible pneumonia Consult Acknowledgment - Thank you for your consult request.
[2018-06-15 22:06] VITALS: BP 164/60
[2018-06-16 06:37] VITALS: BP 143/93
--- NOTE | 2018-06-16 11:25 | Patient Discharge Instructions ---
Discharge Instructions General Discharge Information You were seen/treated for: chest pain Special Instructions: Please follow up with your PCP within 1 week of discharge Please follow up with your oncologist within 1 week of discharge Please folllow up with your live in caregiver within 1 week of discharge Please follow up with [employer] Admin within 1 week of discharge Acute Coronary Syndrome Inclusion Criteria At DC or during hospital stay patient has or had the following: ACS DIAGNOSIS Yes Discharge Core Measures Meds if any: Prescribed or Continued at Discharge Meds if any: NOT Prescribed or Continued at Discharge Congestive Heart Failure Inclusion Criteria At DC or during hospital stay patient has or had the following: CHF DIAGNOSIS No Discharge Core Measures Meds if any: Prescribed or Continued at Discharge Meds if any: NOT Prescribed or Continued at Discharge Cerebrovascular accident Inclusion Criteria At DC or during hospital stay patient has or had the following: CVA/TIA Diagnosis No Discharge Core Measures Meds if any: Prescribed or Continued at Discharge Meds if any: NOT Prescribed or Continued at Discharge Venous thromboembolism Inclusion Criteria VTE Diagnosis No VTE Type NONE VTE Confirmed by (Test) NONE Discharge Core Measures - Per Current guidelines, there needs to be overlap - treatment for the first 5 days of Warfarin therapy. - If discharged on Warfarin prior to 5 days of - overlap therapy, the patient will need to be - assessed for post discharge needs including - *Post discharge parental anticoagulation - *Warfarin and/or parental anticoagulation education - *Follow up date to check INR post discharge At least 5 days overlap therapy as Inpatient No Meds if any: Prescribed or Continued at Discharge Note: Overlap Therapy is Warfarin and Anticoagulant Meds if any: NOT Prescribed or Continued at Discharge
--- NOTE | 2018-06-16 11:42 | PN- Housestaff ---
Ayaan Hernandez 06/16/18 1142: Subjective Follow-up For: Chest pain Subjective: Dariusz was sandee nds examined this morning. SHe was doing well , no acute overnight events. SHe denies any fever, chest pain, coy=ugh, sputum , etc. Review of Systems Constitutional: Reports: see HPI. Objective Last 24 Hrs of Vital Signs/I&O Vital Signs Date Time Temp Pulse Resp B/P B/P Pulse O2 O2 Flow FiO2 Mean Ox Delivery Rate 06/16 1504 95 Room Air 06/16 1408 97.8 98 18 148/97 94 Room Air 06/16 1355 95 Room Air 06/16 0843 76 134/80 06/16 0800 95 Room Air 06/16 0637 98.2 93 20 143/93 99 Room Air 06/16 0000 Room Air 06/15 2206 97.9 100 19 164/60 95 Room Air 06/15 2205 82 94 06/15 2204 93 Room Air Intake & Output 06/16 1600 06/16 0800 06/16 0000 Intake Total 910 760 250 Output Total Balance 910 760 250 Intake, IV 10 280 10 Intake, Oral 900 480 240 Number 1 0 Bowel Movements Patient 313 lb Weight Weight Bed scale Measurement Method Physical Exam General Appearance: Alert, Oriented X3, Cooperative, No Acute Distress Cardiovascular: Regular Rate, No Murmurs Lungs: Clear to Auscultation, Normal Air Movement Abdomen: Normal Bowel Sounds, Soft, No Tenderness, No Hepatospenomegaly, No Masses Neurological: Normal Speech, Strength at 5/5 X4 Ext, Normal Tone, Sensation Intact Extremities: No Clubbing, No Cyanosis, No Edema, Normal Pulses, No Tenderness/ Swelling Current Medications: Current Medications Sig/He Start time Last Medication Dose Route Stop Time Status Admin Acetaminophen 650 MG Q6P PRN 06/15 0015 DCD PO Albuterol Sulfate 3 ML Q4P PRN 06/15 1330 DCD INH Albuterol Sulfate 2 PUF BIDPRN PRN 06/15 1322 DCD INH Amlodipine Besylate 5 MG DAILY 06/15 900 DCD 06/16 PO 0843 Aspirin Buffered 81 MG DAILY 06/15 900 DCD 06/16 PO 0843 Atorvastatin Calcium 40 MG 1700 06/15 1700 DCD 06/16 PO 1636 Azithromycin 500 MG 0000 06/16 0000 DCD 06/15 Sodium Chloride 250 ML IV 2336 Ceftriaxone Sodium 1,000 MG 0000 06/16 0000 DCD 06/15 IV 2335 Cholecalciferol 2,000 IU DAILY 06/15 900 DCD 06/16 PO 0843 Clopidogrel Bisulfate 75 MG DAILY 06/15 900 DCD 06/16 PO 0843 Docusate Sodium 100 MG DAILY NEEDED PRN 06/15 0015 DCD PO Enoxaparin Sodium 40 MG DAILY 06/15 900 DCD 06/16 SC 0842 Insulin Aspart 0 TIDAC 06/15 800 DCD 06/16 SC 1233 Metoprolol Succinate 150 MG DAILY 06/15 900 DCD 06/16 PO 0843 Morphine Sulfate 2 MG Q6P PRN 06/15 0015 DCD IV Omeprazole 40 MG DAILY AC 06/15 700 DCD 06/16 PO 0527 Oxycodone HCl 5 MG Q6 PRN 06/15 0015 DCD PO Patient Medication 1 ED ONE ONE 06/16 1045 DC 06/16 Teaching ED 06/16 1046 1101 Last 24 Hrs of Lab/Klaus Results Last 24 Hrs of Labs/Mics: Microbiology 06/15 2359 LOWER RESP: Respiratory Culture - CAN Cancelled: NUMBER OF SQUAMOUS CELLS INDICATES POOR QUALITY SPECIMEN 06/15 2359 LOWER RESP: Gram Stain - CAN Cancelled: NUMBER OF SQUAMOUS CELLS INDICATES POOR QUALITY SPECIMEN Assessment/Plan Assessment: 62 year old obese female with history of lung adenocarcinoma with metastatic liver lesions, coronary artery disease status post stenting presenting with 2 days of dyspnea on exertion. CTA found right upper lobe and right lower lobe superior segment pneumonic infiltrate with right posterior pleural thickening, suggestive of possible pneumonia. VTE negative, but D-dimer elevated at 717. Problems: 1. Right upper & lower lobe PNA 2. Microcytic anemia 3. Hypertension 4. Diabetes mellitus 5. History of lung adenocarcinoma, with metastases to the liver and lymph nodes 6. Morbid obesity Plan: Full code Problem List: 1. Chest pain 2. PNA (pneumonia) Pain Ratin Pain Location: chest Pain Goal: Remain pain free Pain Plan: none Tomorrow's Labs & Rationales: none Melecio Bass MD 06/16/18 1738: Attending MD Review Statement Attending Statement Attending MD Statement: examined this patient, discuss w/resident/PA/NET SOFTWARE DEVELOPER, agreed w/resident/PA/NET SOFTWARE DEVELOPER, reviewed EMR data (avail), discussed with nursing, discussed with case mgmt, amended to note Attending Assessment/Plan: The patient was seen and discussed with house staff. Clinically much improved with no fever and only mild cough. OK to discharge to home today on po Zithromax. Will have patient or pulmonary office speak with her CPAP supplier at home as she says her machine is malfunctioning.
--- NOTE | 2018-06-16 12:46 | PN- Cardiology ---
Subjective Subjective: Feeling better. No further chest pain. No palpitations. No shortness of breath. Objective Vital Signs and I&Os Vital Signs Date Time Temp Pulse Resp B/P B/P Pulse O2 O2 Flow FiO2 Mean Ox Delivery Rate 06/16 1504 95 Room Air 06/16 1408 97.8 98 18 148/97 94 Room Air 06/16 1355 95 Room Air 06/16 0843 76 134/80 06/16 0800 95 Room Air 06/16 0637 98.2 93 20 143/93 99 Room Air 06/16 0000 Room Air 06/15 2206 97.9 100 19 164/60 95 Room Air 06/15 2205 82 94 06/15 2204 93 Room Air Intake & Output 06/16 1600 06/16 0800 06/16 0000 06/15 1600 06/15 0800 06/15 0000 Intake Total 910 760 250 910 490 0 Output Total 300 Balance 910 760 250 910 190 0 Intake, IV 10 280 10 10 250 Intake, Oral 900 480 240 900 240 0 Number 1 0 0 Bowel Movements Output, Urine 300 Patient 313 lb 314 lb 310 lb Weight Weight Bed scale Bed scale Reported by Patient Measurement Method Physical Exam: Gen: The patient is in no acute distress HEENT: Normal nose, ears, and oropharynx. Pupils equal bilaterally. Conjunctiva normal. Neck: Supple with no JVD, no masses, and no thyromegaly Lungs: Clear to auscultation with normal respiratory effort Heart: RRR, S1, S2, no murmurs. No peripheral edema, 2+ pulses in the lower extremities bilaterally Abdomen: Soft, nontender, no masses. No hepatomegaly. No splenomegaly Extremities: No clubbing or cyanosis. Normal muscle strength in the upper and lower extremities Skin: Normal skin turgor with no skin ulcers or lesions noted. Neuro: Cranial nerves intact. Sensation intact Current Medications: Current Medications Sig/He Start time Last Medication Dose Route Stop Time Status Admin Acetaminophen 650 MG Q6P PRN 06/15 0015 DCD PO Albuterol Sulfate 3 ML Q4P PRN 06/15 1330 DCD INH Albuterol Sulfate 2 PUF BIDPRN PRN 06/15 1322 DCD INH Amlodipine Besylate 5 MG DAILY 06/15 900 DCD 06/16 PO 0843 Aspirin Buffered 81 MG DAILY 06/15 900 DCD 06/16 PO 0843 Atorvastatin Calcium 40 MG 1700 09/23 1700 DCD 06/16 PO 1636 Azithromycin 500 MG 0000 06/16 0000 DCD 06/15 Sodium Chloride 250 ML IV 2336 Ceftriaxone Sodium 1,000 MG 0000 06/16 0000 DCD 06/15 IV 2335 Cholecalciferol 2,000 IU DAILY 06/15 0900 DCD 06/16 PO 0843 Clopidogrel Bisulfate 75 MG DAILY 06/15 09 DCD 06/16 PO 0843 Docusate Sodium 100 MG DAILY NEEDED PRN 06/15 0015 DCD PO Enoxaparin Sodium 40 MG DAILY 06/15 900 DCD 06/16 SC 0842 Insulin Aspart 0 TIDAC 06/15 08 DCD 06/16 SC 1233 Metoprolol Succinate 150 MG DAILY 06/15 900 DCD 06/16 PO 0843 Morphine Sulfate 2 MG Q6P PRN 06/15 0015 DCD IV Omeprazole 40 MG DAILY AC 06/15 0700 DCD 06/16 PO 0527 Oxycodone HCl 5 MG Q6 PRN 06/15 0015 DCD PO Patient Medication 1 ED ONE ONE 06/16 1045 DC 06/16 Teaching ED 06/16 1046 1101 Results Last 48 Hrs of Labs/Mics: Laboratory Tests 06/15/18 1535: Troponin I < 0.01, Mdb-M-Dnoospmpyid Pept 212 H 06/15/18 1535: Anion Gap 12, Estimated GFR 50 L, BUN/Creatinine Ratio 11.8, CBC w Diff MAN DIFF ORDERED, RBC 5.78 H, MCV 64.8 L, MCH 20.5 L, MCHC 31.6 L, RDW 19.6 H, MPV 9.8, Segmented Neutrophils 64, Lymphocytes 13 L, Monocytes 16 H, Eosinophils 7 H, Platelet Estimate VERIFIED BY SMEAR, Polychromasia 1+, Hypochromic-Microcytic 2+, Poikilocytosis 1+, Anisocytosis 1+, Microcytic Cells 2+, Target Cells 1+ Microbiology 06/15 152 URINE ROUT: Legionella Antigen - COMP 06/15 152 URINE ROUT: Streptococcus pneumoniae Antigen (M - COMP Assessment/Plan Assessment/Plan Assessment: 1. Lung cancer 2. Diabetes mellitus 3. CAD 4. Chest discomfort with possible pneumonia. Ruled out for myocardial infarct Plan: * The patient is planned for discharge to home on oral antibiotic therapy * She is advised to call with further chest discomfort * Follow up in the office with Dr. Arzola/Ger Continue telemetry? Yes
[2018-06-16 14:08] VITALS: BP 148/97
[2018-06-16] MEDS ORDERED: ZITHROMAX500 M2 PO ×2 (15:36→16:11)
[2018-06-16] MEDS ORDERED: LIPITOR40 M1 PO (15:37)
--- NOTE | 2018-06-17 20:59 | Discharge Summary ---
Visit Information Visit Dates Admission Date: 06/14/18 Discharge Date: 06/16/18 Hospital Course Course Attending Physician: Melecio Bass MD Primary Care Physician: Elly Avelar APRN Allergies: Coded Allergies: NO KNOWN ALLERGIES (NONE 11/11/17) Discharge Instructions Medications at Discharge Discharge Medications: Continue taking these medications: Esomeprazole (Nexium) 40 MG CAPSULE.DR 1 Capsule ORAL DAILY Qty = 30 Comments: PRILOSEC GIVEN 0530AM 06/16/18 Metoprolol Succinate (Metoprolol Succinate) 50 MG TAB.ER.24H 3 Tablet ORAL DAILY Qty = 30 Comments: Last Taken: 06/16/18 Time: 0900AM Amlodipine Besylate (Amlodipine Besylate) 5 MG TABLET 1 Tablet ORAL DAILY Qty = 30 Comments: Last Taken: 06/16/18 Time: 0900AM Losartan Potassium (Losartan Potassium) 100 MG TABLET 1 Tablet ORAL DAILY Qty = 30 Comments: NOT GIVEN IN HOSPITAL Dulaglutide (Trulicity) 1.5 MG/0.5 ML PEN.INJCTR 1.5 Milligram SC EVERY SATURDAY Qty = 8 Comments: NOT GIVEN IN [facility] Clopidogrel Bisulfate (Clopidogrel) 75 MG TABLET 1 Tablet ORAL DAILY Qty = 30 Comments: Last Taken: 06/16/18 Time: 0900AM Metformin HCl (Metformin HCl ER) 500 MG TAB.ER.24H 1 Tablet ORAL TWICE DAILY Qty = 180 Comments: NOT GIVEN IN HOSPITAL Allopurinol (Allopurinol) 100 MG TABLET 1 Tablet ORAL DAILY Qty = 90 Comments: NOT GIVEN IN HOSPITAL Aspirin (Ecotrin*) 81 MG TABLET.DR 1 Tablet ORAL DAILY Comments: Last Taken: 06/16/18 Time: 0900AM Cholecalciferol (Vitamin D3) (Vitamin D) 2,000 UNIT TABLET 1 Tablet ORAL DAILY Comments: Last Taken: 06/16/18 Time: 0900AM Ascorbate Calcium (Vitamin C) 500 MG TABLET 2 Tablet ORAL DAILY Comments: NOT GIVEN IN HOSPITAL Albuterol Sulfate (Proair Hfa) 90 MCG HFA.AER.AD 2 Puff Inhale through mouth As Directed as needed for RESP. Comments: NOT GIVEN IN HOSPITAL Cyanocobalamin (Vitamin B-12) (Vitamin B12) 5,000 MCG TAB.RAPDIS 1 Tablet ORAL DAILY Comments: NOT GIVEN IN HOSPITAL Ferrous Sulfate (Slow Release Iron) 142 MG (45 MG IRON) TABLET.ER 1 Tablet ORAL DAILY Comments: NOT GIVEN IN HOSPITAL Atorvastatin Calcium (Lipitor) 40 MG TABLET 1 Tablet ORAL DAILY Comments: Last Taken: 06/16/18 Time: 1600PM Start taking the following new medications: Azithromycin (Zithromax) 500 MG TABLET 1 Tablet ORAL DAILY Qty = 4 No Refills Comments: IV FORM GIVEN 06/15/18 @2300PM
== END 2018-06-16 17:25 | DRG 194 ==
LOC: ERH 18:38 → 2NB 23:04 → ERHI 23:04 → ENRESERV 06-15 00:27 → 2NB 06-15 01:26 → ENPENDDIS 06-16 16:32 → 2NB 06-16 17:25
PROVIDERS: Internal Medicine; Physician Assistant
DX: J18.9 Pneumonia, unspecified organism (principal); Z68.43 Body mass index [BMI] 50.0-59.9, adult; C78.7 Secondary malignant neoplasm of liver and intrahepatic bile duct; C77.9 Secondary and unspecified malignant neoplasm of lymph node, unspecified; E66.01 Morbid (severe) obesity due to excess calories; D50.9 Iron deficiency anemia, unspecified; I25.10 Atherosclerotic heart disease of native coronary artery without angina pectoris; Z85.118 Personal history of other malignant neoplasm of bronchus and lung; Z92.21 Personal history of antineoplastic chemotherapy; Z92.3 Personal history of irradiation; I10 Essential (primary) hypertension; Z95.5 Presence of coronary angioplasty implant and graft; M1A.9XX0 Chronic gout, unspecified, without tophus (tophi); E55.9 Vitamin D deficiency, unspecified; Z87.891 Personal history of nicotine dependence; E11.9 Type 2 diabetes mellitus without complications; Z79.4 Long term (current) use of insulin; Z79.51 Long term (current) use of inhaled steroids; K21.9 Gastro-esophageal reflux disease without esophagitis
CPT/HCPCS: 2NBSP; ERO; 36415; 71046; 82436; 87040; 87070; 87449; 87450; 93005; 93010; 96374; J0456; J0696; J1650; J3490; J7040